=== PATIENT | female | born 1975 | race Asian ===

== ENCOUNTER 2020-05-14 23:20 | Inpatient (IN) ==
[2020-05-14] MEDS: Ringers Solution, Lactated 1,000 ML IVC SCH (21:59)
[2020-05-14 22:06] LABS: Basophils % 0.3 %
[2020-05-14 22:08] LABS: Eosinophils % 0.5 %; Hematocrit 33.1 % (35.3-44.9); Hemoglobin 9.7 g/dL (11.5-15.4); Immature Granulocytes % 0.8 % (0-4); Immature Platelets 2.9 % (1.1-6.1); Lymphocytes # 0.9 K/mcL (0.6-4.6); Lymphocytes % 12.1 %; Mean Corpuscular HGB Conc 29.3 g/dL (31.6-35.5); Mean Corpuscular Hemoglobin 19.1 pg (28.0-33.3); Mean Corpuscular Volume 65.3 fL (83.0-100.0); Mean Platelet Volume 10.2 fL (9.4-12.4); Monocytes # 0.6 K/mcL (0.0-1.3); Monocytes % 8.3 %; Neutrophils # 5.9 K/mcL (1.6-8.9); Platelet Count 262 K/mcL (140-400); Red Blood Count 5.07 M/mcL (3.82-4.97); Red Cell Distribution Width 20.2 % (11.5-14.5); White Blood Count 7.5 K/mcL (4.3-11.1)
[2020-05-14 22:15] LABS: Amphetamine Screen,Urine Negative ng/mL (Cutoff=1000); Barbiturate Screen,Urine Negative ng/mL (Cutoff=200); Benzodiazepines Screen,Urine Negative ng/mL (Cutoff=200); Cannabinoid Screen,Urine Negative ng/mL (Cutoff = 50); Cocaine Screen,Urine Negative ng/mL (Cutoff= 300); Opiate Screen,Urine Negative ng/mL (Cutoff=300); Phencyclidine Screen,Urine Negative ng/mL (Cutoff=25)
[2020-05-14 22:34] LABS: Hypochromasia Present (Not Present); Microcytosis Present (Not Present); Ovalocytes 1+ (Not Present); Platelet Estimate Normal (Normal); Polychromasia 1+ (Not Present); Tear Drop Cells 1+ (Not Present)
[2020-05-14] MEDS: *HR* FentaNYL (PF) 100 MCG/2 ML VIAL IVP PRN (23:16)
[~2020-05-14 23:20] MED LIST: Azithromycin 500 MG in 0.9 % Sodium Chloride 250 ML IVPB ONE; Famotidine 20 MG/2 ML VIAL IVP PRN; Lidocaine 1% 20 ML MDV ID PRN; Metoclopramide 10 MG/2 ML VIAL IVP PRN; Naloxone 0.4 MG/ML INJ IVP PRN; Ondansetron 4 MG/2 ML VIAL IVP PRN; Oxytocin 20 units/ LR 1000 mL 20 UNIT/1,000 ML BAG IVC SCH; Penicillin G Potassium 5,000,000 UNIT in 0.9 % Sodium Chloride Mini Bag 100 ML IVPB ONE
[2020-05-15] MEDS ORDERED: Penicillin G Potassium 2,500,000 UNIT/105 ML UNIT IVPB SCH
[2020-05-15] MEDS: *HR* FentaNYL (PF) 100 MCG/2 ML VIAL IVP PRN (01:01)
[2020-05-15] MEDS ORDERED: Ibuprofen 600 MG TABLET PO ONE (02:15)
[2020-05-15] MEDS ORDERED: Benzocaine/Menthol 56 GM AEROSOL SPRAY TP PRN (04:45)
[2020-05-15] MEDS ORDERED: Oxytocin 20 units/ LR 1000 mL 20 UNIT/1,000 ML BAG IVC SCH (04:45)
[2020-05-15] MEDS ORDERED: Lanolin 7 G OINT...G. TP PRN (04:45)
[2020-05-15] MEDS: Acetaminophen 325 MG TABLET PO PRN ×2 (04:55→18:29)
[2020-05-15] MEDS: Ringers Solution, Lactated 1,000 ML IVC SCH (05:41)
[2020-05-15] MEDS: Ibuprofen 600 MG TABLET PO PRN ×2 (11:02→18:30)
[2020-05-15] MEDS: Prenatal Vit/FA 1 EACH TABLET PO SCH (12:38)
[2020-05-16 05:41] LABS: Basophils % 0.4 %; Eosinophils # 0.1 K/mcL (0.0-0.6); Eosinophils % 1.3 %; Hematocrit 26.4 % (35.3-44.9); Hemoglobin 7.9 g/dL (11.5-15.4); Immature Granulocytes % 0.8 % (0-4); Immature Platelets 2.5 % (1.1-6.1); Lymphocytes # 1.5 K/mcL (0.6-4.6); Lymphocytes % 17.7 %; Mean Corpuscular HGB Conc 29.9 g/dL (31.6-35.5); Mean Corpuscular Hemoglobin 19.4 pg (28.0-33.3); Mean Corpuscular Volume 64.7 fL (83.0-100.0); Monocytes # 0.5 K/mcL (0.0-1.3); Monocytes % 6.3 %; Neutrophils # 6.3 K/mcL (1.6-8.9); Nucleated Red Blood Cells 0.6 /100 WBC (0); Platelet Count 218 K/mcL (140-400); Red Blood Count 4.08 M/mcL (3.82-4.97); Red Cell Distribution Width 19.3 % (11.5-14.5); Segmented Neutrophils % 73.5 %; White Blood Count 8.6 K/mcL (4.3-11.1)
[2020-05-16 06:06] LABS: Anisocytosis 1+ (Not Present); Microcytosis Present (Not Present)
[2020-05-16 06:07] LABS: Ovalocytes 1+ (Not Present); Platelet Estimate Normal (Normal); Tear Drop Cells 1+ (Not Present)
[2020-05-16] MEDS: Ibuprofen 600 MG TABLET PO PRN (06:12)
[2020-05-16] MEDS: Prenatal Vit/FA 1 EACH TABLET PO SCH (07:46)
[2020-05-16 08:01] VITALS: BP 115/70
== END 2020-05-16 13:15 | disposition home or self-care (01) | DRG 560 ==
LOC: 1NENULAB → 1NENUOBS 05-15 05:21
PROVIDERS: ADMIT Obstetrics & Gynecology; ATTEND Obstetrics & Gynecology